=== PATIENT | male | born 1985 | race Caucasian/White ===

== ENCOUNTER 2018-01-23 05:57 | Observation (INO) | payer OTHER ==
--- NOTE | 2018-01-22 17:26 | Diagnostic Imaging Report ---
PROCEDURE: Frontal and lateral views of the chest. COMPARISON: None. INDICATIONS: PREOP C SPINE SX TOMORROW FINDINGS: Lines/tubes: None. Lungs: The lungs are well inflated and clear. There is no evidence of pneumonia or pulmonary edema. Pleura: There is no pleural effusion or pneumothorax. Heart and mediastinum: The heart and the mediastinum are normal. Bones: No acute bony abnormality. IMPRESSION: 1. No acute cardiopulmonary disease. Dictated by: Luis Saha M.D. on 01/22/2018 at 17:28 Electronically approved by: Luis Saha M.D. on 01/22/2018 at 17:28
[2018-01-22 17:39] LABS: BASOPHILS # (AUTO) 0.1 (0.0-0.1); BASOPHILS % 1.2 % (0.0-1.0); EOSINOPHILS # (AUTO) 0.4 (0.0-0.4); EOSINOPHILS % 7.3 % (0.0-6.0); HEMATOCRIT 44.2 % (38.2-49.6); HEMOGLOBIN 15.7 g/dL (14.0-18.0); LYMPHOCYTES # (AUTO) 1.3 (1.0-3.2); LYMPHOCYTES % 24.7 % (18.0-39.1); MEAN CORPUSCULAR HEMOGLOBIN 31.5 pg (28-32); MEAN CORPUSCULAR HGB CONC 35.5 g/dL (31-35); MEAN CORPUSCULAR VOLUME 88.6 fL (81-99); MONOCYTES # (AUTO) 0.5 (0.2-0.8); MONOCYTES % 9.7 % (4.4-11.3); NEUTROPHILS # (AUTO) 2.9 (2.1-6.9); NEUTROPHILS % 56.9 % (38.7-80.0); PLATELET COUNT 237 x10e3/uL (140-360); RED BLOOD COUNT 4.99 x10e6/uL (4.3-5.7); RED CELL DISTRIBUTION WIDTH 12.5 % (11.7-14.4)
[2018-01-22 17:56] LABS: ANION GAP 14.2 mmol/L (8-16); BLOOD UREA NITROGEN 19 mg/dL (7-26); BUN/CREATININE RATIO 17 (6-25); CALCIUM 10.1 mg/dL (8.4-10.2); CARBON DIOXIDE 28 mmol/L (22-29); CHLORIDE 103 mmol/L (98-107); CREATININE, SERUM 1.15 mg/dL (0.72-1.25); EST GLOMERULAR FILTRATION RATE > 60 ML/MIN (60-); GLUCOSE 92 mg/dL (74-118); POTASSIUM 4.2 mmol/L (3.5-5.1); SODIUM 141 mmol/L (136-145)
[2018-01-22 18:14] LABS: INR 1.06
[2018-01-22 18:15] LABS: PARTIAL THROMBOPLASTIN TIME 34.3 seconds (23.8-35.5)
[~2018-01-23 05:57] MED LIST: ASPIRIN81 MG; BYSTOLIC10 MG PO; LORAZEPAM0.5 MG PO; MAGNESIUM; VITAMIN D1000 UNI1 PO
--- OUTSIDE RECORDS SUMMARY | 2018-01-23 05:59 | XMS REPORT ---
Author Author [facility] Address Unknown Phone Unavailable Care Team Providers Care Manager Digital [employer] Name Role Phone WARNER IBRAHIM Unavailable Unavailable Problems This patient has no known problems. Allergies, Adverse Reactions, Alerts This patient has no known allergies or adverse reactions. Medications This patient has no known medications. Results Test Description Test Time Test Comments Text Results Atomic Results Result Comments CHEST 2 VIEWS 2018-01-22 17:28:00 [place] [id number] Patient Name: RICKI GTZ MR #: [id number] : 1985 Age/Sex: 32/M Req #: [id number] Adm Physician: Ordered by: WARNER IBRAHIM MD Report #: [id number] Location: OR Room/Bed: Procedure: DX/CHEST 2 VIEWS Exam Date: Exam Time: REPORT STATUS: Signed PROCEDURE: Frontal and lateral views of the chest. COMPARISON: None. INDICATIONS: PREOP C SPINE SX TOMORROW FINDINGS: Lines/tubes: None. Lungs: The lungs are well inflated and clear. There is no evidence of pneumonia or pulmonary edema. Pleura: There is no pleural effusion or pneumothorax. Heart and mediastinum: The heart and the mediastinum are normal. Bones: No acute bony abnormality. IMPRESSION: 1. No acute cardiopulmonary disease. Dictated by: Luis Roach M.D. on 01/22/2018 at 17:28 Electronically approved by: Luis Roach M.D. on 01/22/2018 at 17:28 Dictated By: LUIS ROACH MD 27 Transcribed By: MENDEL on 01/22/181727 COPY TO: WARNER IBRAHIM MD
[2018-01-23] MEDS ORDERED: BUPIVACAINE 0.5%/EPI 30 ML SDV INJ ONE (06:38)
[2018-01-23] MEDS ORDERED: THROMBIN FOR SOLN 5,000 UNIT VIAL ONE (06:38)
[2018-01-23] MEDS ORDERED: BACITRACIN 50,000 UNIT VIAL ONE (06:38)
[2018-01-23] MEDS ORDERED: GELATIN SPONGE SZ 100 ONE (06:38)
[2018-01-23] MEDS ORDERED: CEFAZOLIN SOD 1 GM VIAL ONE (07:12)
[2018-01-23] MEDS ORDERED: LACTATED RINGER'S 1,000 ML IV SCH (09:13)
[2018-01-23] MEDS ORDERED: ZOLPIDEM TARTRATE 5 MG TAB PO PRN (09:15)
[2018-01-23] MEDS ORDERED: OXYCODONE/ACETAMINOPHEN 5-325 1 EACH TABLET PO PRN (09:15)
[2018-01-23] MEDS ORDERED: HYDROMORPHONE 2MG/ML INJ IV PRN (09:15)
[2018-01-23] MEDS ORDERED: ONDANSETRON HCL INJ 2 MG/ML VIAL IV PRN (09:15)
[2018-01-23] MEDS ORDERED: MORPHINE SULFATE 5 MG/ML VIAL IM PRN (09:15)
[2018-01-23] MEDS ORDERED: CARISOPRODOL 350 MG TAB PO PRN (09:15)
[2018-01-23] MEDS ORDERED: PROMETHAZINE HCL (IM) 25 MG/ML VIAL IM PRN (09:15)
[2018-01-23] MEDS ORDERED: MAGNESIUM/ALUMINUM/SIMETHICONE 30 ML UDC PO PRN (09:15)
[2018-01-23] MEDS ORDERED: CEPACOL SORE THROAT LOZENGES PO PRN (09:15)
[2018-01-23] MEDS ORDERED: ACETAMINOPHEN 325 MG TAB PO PRN (09:15)
[2018-01-23 11:33] VITALS: BP 140/90
[2018-01-23 12:08] VITALS: BP 116/78
[2018-01-23 12:30] VITALS: BP 140/90
[2018-01-23] MEDS ORDERED: CEFAZOLIN SOD 1 GM/NS 50ML 50 ML IV SCH (14:00)
[2018-01-23] MEDS: CEFAZOLIN SOD 1 GM VIAL IV SCH ×2 (14:22→22:25)
[2018-01-23 16:22] VITALS: BP 116/64
[2018-01-23] MEDS ORDERED: HYDROMORPHONE 1MG/1ML INJ IV PRN (16:45)
[2018-01-23] MEDS: LORAZEPAM 0.5 MG TAB PO SCH (17:00)
[2018-01-23] MEDS ORDERED: ACETAMINOPHEN 1000 MG/100 ML IV ONE (18:54)
[2018-01-23] MEDS ORDERED: LIDOCAINE HCL 2% LOCAL INJ 5 ML SDV VIAL INJ ONE (18:54)
[2018-01-23] MEDS ORDERED: ROCURONIUM BROMIDE 10 MG/ML 5ML VIAL ONE (18:54)
[2018-01-23] MEDS ORDERED: ONDANSETRON HCL INJ 2 MG/ML VIAL ONE (18:54)
[2018-01-23] MEDS ORDERED: SEVOFLURANE INHAL SOLN 250 ML PEN BTL ONE (18:54)
[2018-01-23] MEDS ORDERED: PROPOFOL IV EMULSION 10 MG/ML 20 ML VIAL ONE (18:54)
[2018-01-23] MEDS ORDERED: DEXAMETHASONE SOD PHOS INJ 4 MG/ML VIAL ONE (18:54)
[2018-01-23] MEDS ORDERED: MIDAZOLAM HCL 2 MG/2 ML VIAL ONE (19:12)
[2018-01-23] MEDS ORDERED: FENTANYL CITRATE/PF 100MCG/2 ML INJ ONE (19:12)
[2018-01-23 20:00] VITALS: BP 129/69
[2018-01-24] VITALS: BP 112/58
[2018-01-24 04:00] VITALS: BP 106/59
[2018-01-24] MEDS: CEFAZOLIN SOD 1 GM VIAL IV SCH (06:08)
--- NOTE | 2018-01-24 06:37 | Diagnostic Imaging Report ---
C-SPINE 2 VIEWS AP LATERAL HISTORY: Postsurgical fusion/fixation of cervical spine COMPARISON: None FINDINGS: Bones: Anterior fusion of C6-7 with intervertebral disc spacer and plate and screws Osseous alignment is within normal limits. Joints: The joint spaces are well-maintained. Soft tissues: Minimal presurgical soft tissue edema and subcutaneous emphysema on the right. IMPRESSION: No acute radiographic abnormality. No evidence of hardware failure. Signed by: Dr. Germain Tatum M.D. on 01/24/2018 6:30 AM
[2018-01-24 08:03] VITALS: BP 134/75
[2018-01-24] MEDS: LORAZEPAM 0.5 MG TAB PO SCH (08:22)
[2018-01-24] MEDS ORDERED: CHOLECALCIFEROL 1,000 UNIT TAB PO SCH ×2 (09:00)
[2018-01-24] MEDS ORDERED: NEBIVOLOL 10 MG TAB PO SCH (09:00)
--- NOTE | 2018-02-10 05:24 | Operative Report ---
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 POSTOPERATIVE DIAGNOSIS: C6-7 disk herniation and spondylosis with radiculopathy, M50.123. PROCEDURES 1. C6-7 anterior cervical diskectomy, microsurgical osteophyte resection and allograft fusion 97389. 2. Preparation of [employer] cortical cancellous allograft, 99620. 3. C6-7 anterior cervical plating with Synthes ZPN plate, 15539. ANESTHESIA: General. INDICATIONS: Patient is a 32-year-old man who presents with a disk osteophyte complex and left-sided foraminal stenosis at C6-7 refractory to extensive conservative treatment over the past year. He was taken to the operating room for a one-level anterior cervical decompression and fusion. PROCEDURE: After induction of general anesthesia, the patient was placed on the operating table in supine position. The right side of the neck was prepped and draped in sterile fashion. A small transverse incision was created over the right side of the neck superimposed on the C6-7 disk space as determined by fluoroscopy. The platysma was divided in line with the incision. A subplatysmal dissection was carried out. An avascular plane of dissection was developed medial to sternocleidomastoid muscle and was followed medial to the carotid sheath to the anterior border of the cervical spine. The deep cervical fascia was opened. The esophagus was retracted to the left. The attachments of the longus coli muscles to the anterolateral aspects of the vertebral bodies of C6 and C7 were divided. The anterior longitudinal ligament was resected. [place] posts were inserted into C6 and C7. The [place] distractor was used to distract the disk space. The anterior annulus of the disk was incised with a #11 blade. The contents of the disks were thoroughly evacuated with angled curets and pituitary rongeurs. The posterior osteophytes were meticulously drilled with a 2-mm cutting bur on a high-speed drill until they were completely removed. The posterior annulus of the disk, chronically herniated disk material and posterior longitudinal ligament were resected layer by layer until the dura was fully exposed and decompressed. The medial aspects of the uncinate processes were resected bilaterally to further expose and decompress the origins of the corresponding nerve roots. After satisfactory decompression had been achieved, the endplates were prepared for fusion. The disk space was sized and found to be 8 mm in height. A piece of MTF cortical cancellous allograft measuring 8 mm in thickness was selected and prepared in saline and loaded onto a corresponding Synthes ZPN plate. The construct was then inserted into the C6-7 disk space under distraction and fluoroscopic guidance and tamped in place until the anterior margin of the plate was flush with anterior margin of the vertebral bodies. The distraction was released, and the distraction posts were removed. The plate was then screwed to the endplates of C6 and C7 with 2 pairs of 14-mm screws. All screws were locked. An excellent construct was obtained. The wound was copiously irrigated with Bacitracin solution. Meticulous hemostasis was secured. Retractor was removed. The platysma was closed with 3-0 Vicryl sutures. The skin was closed with 4-0 Monocryl sutures in subcuticular fashion. Steri-Strips and dressing were applied. The patient was awakened, extubated and taken to the postanesthesia care unit in stable condition. No intraoperative complications were encountered. Estimated blood loss was 30 mL. Job#: [id number]
== END 2018-01-24 09:43 | disposition home or self-care (01) ==
LOC: OR 05:57 → IMCU 10:01
PROVIDERS: ADMIT Neurological Surgery; ATTEND Neurological Surgery
DX: M50.123 Cervical disc disorder at C6-C7 level with radiculopathy (principal); I10 Essential (primary) hypertension; F41.9 Anxiety disorder, unspecified
CPT/HCPCS: 20931; 22551; 22845; 36415; 71046; 72040; 77003; 80048; 85025; 85610; 85730; 86850; 86900; 88304; 93005; C1713 ×2; C9359; G0378 ×2; J0690 ×2; J1100; J2001; J2250; J2405

== ENCOUNTER → 2018-02-20 | Outpatient (CLI) | payer OTHER ==
--- NOTE | 2018-02-20 13:47 | Diagnostic Imaging Report ---
PROCEDURE: C-SPINE AP AND LAT WITH FLEX AND EXT COMPARISON: Patients [facility], DX, C-SPINE 2 VIEWS AP \T\ LATERAL, 01/24/2018, 4:58. INDICATIONS: FUSION C-SPINE FINDINGS: C1 through C7 are visualized on the lateral view. The patient is status post fusion of C6-C7 with metallic transfixing screws and disc spacer which are intact and in adequate alignment. Flexion and extension views demonstrate no change in alignment. The prevertebral soft tissues are not swollen. CONCLUSION: Status post anterior fusion of C6-C7. Intact hardware with adequate alignment. Torsten Sanz D.O. Dictated by: Torsten Sanz D.O. on 02/20/2018 at 13:51 Electronically approved by: Torsten Sanz D.O. on 02/20/2018 at 13:51
== END ==
LOC: RAD 12:27
PROVIDERS: ATTEND Neurological Surgery
DX: M50.20 Other cervical disc displacement, unspecified cervical region (principal); Z98.1 Arthrodesis status
CPT/HCPCS: 72050